=== PATIENT | female | born 1925 | race Caucasian/White ===

== ENCOUNTER 2016-07-19 17:26 | Emergency (ER) | payer OTHER ==
[~2016-07-19] VITALS: Ht 152.4 cm; Wt 72.1 kg
[2016-07-19] MEDS ORDERED: TOPROL XL25 M1 PO (18:13)
[2016-07-19] MEDS ORDERED: AMITRIPTYLINE H25 M2 (18:15)
--- NOTE | 2016-07-19 19:03 | ED EYE COMPLAINT ---
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 DENIES PAIN/HEADACHES. MANUAL BP 166/102 Triage Nurses Notes Reviewed? yes Onset: Gradual Duration: day(s): (3) Timing: recent history Injury Environment: home Severity: moderate No Modifying Factors: none Left Eye Associated Symptoms: blurred vision, decreased vision Right Eye Associated Symptoms: decreased vision HPI: 89 year old female who presents with a 3 day history of gradual vision loss to her right eye in the left upper quadrant. Today she noticed on/off blurry vision in her whole left eye. No pain or headache. No dizziness or difficulty with speech or swallowing. History of prior bilateral cataract repair 7 years ago in [place]. Denies any trauma to the eye. No history of similar symptoms in the past before. Past History Travel History Traveled to [place] past 21 day No Medical History Any Pertinent Medical History? 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 No Review of Systems Review of Systems Constitutional: Denies: chills, fever. Eyes: Reports: blurred vision, decreased acuity, vision change. Denies: foreign body sensation, pain, photophobia, contact lenses, glasses. Ear: Reports: no symptoms. Nose: Reports: no symptoms. Mouth: Reports: no symptoms. Throat: Reports: no symptoms. Respiratory: Denies: short of breath. Cardiovascular: Denies: chest pain, palpitations. GI: Reports: no symptoms. Genitourinary: Reports: no symptoms. Musculoskeletal: Reports: no symptoms. Skin: Reports: no symptoms. Neurological/Psychological: Denies: ataxia, confusion, headache. Hematologic/Endocrine: Denies: bruising, bleeding. Immunologic/Allergic: Reports: no symptoms. All Other Systems: Reviewed and Negative Physical Exam General Appearance: well developed/nourished, mild distress General Inspection: normal inspection Eyelid: normal inspection, everted for exam Conjunctiva/Sclera: normal inspection Cornea: normal inspection EOM: intact Pupil: normal accommodation, PERRL Anterior Chamber: normal inspection General Inspection: normal inspection Eyelid: normal inspection, everted for exam Cornea: normal inspection EOM: intact Pupil: normal accommodation, PERRL Anterior Chamber: normal inspection Physical Exam Head: atraumatic Nose: normal inspection Mouth/Throat: normal mouth inspection Neck: normal inspection, supple Cardiovascular/Respiratory: normal breath sounds, regular rate/rhythm Neurologic/Psych: awake, alert, oriented x 3, normal mood/affect Skin: intact, normal color, warm/dry Progress Differential Diagnosis: detached retina, retinal art./v. occlusion Plan of Care: Orders Procedure Date/time Status COMPREHENSIVE METABOLIC PANEL 07/19 1821 Complete Laboratory Tests 07/19/16 1800: Anion Gap 10, Estimated GFR > 60, BUN/Creatinine Ratio 12.5, Glucose 114 H, Calcium 9.5, Total Bilirubin 0.9, AST 34, ALT 36, Alkaline Phosphatase 88, Total Protein 7.4, Albumin 4.1, Globulin 3.3, Albumin/Globulin Ratio 1.2 incomplete visualization of retina of both eyes. no discernable defect 8:51 PM OPTHO PAGED ACUITY LESS THAN 20/20O BILATERALLY D/W DR LEIGH - WILL SEE IN THE OFFICE AT 9 AM TOMORROW. FEELS SHE DOES NOT REQUIRE IMMEIDATE EVALUATION OR TRANSFER TO [place] AT THIS TIME. (HARRIET BRYANT,GENNY) Diagnostic Imaging: Viewed by Me: CT Scan. Discussed w/RAD: CT Scan. Radiology Impression: PATIENT: LISA HARTMAN PRESENT AGE: 89 PATIENT ACCOUNT NO: [id number] : [birth year] LOCATION: [facility] ORDERING PHYSICIAN: GENNY LARIOS MD SERVICE DATE: 07/19/16 EXAM TYPE: CAT - CT HEAD ANGIOGRAM EXAMINATION: CT HEAD ANGIOGRAM CLINICAL INFORMATION: Left upper quadrant vision loss right eye. COMPARISON: No relevant prior imaging is available. TECHNIQUE: Eligibility And Occupancy Interviewer images were obtained. A CT angiogram of the head was performed in the arterial phase after the intravenous administration of 95 mL Optiray 350. Pre and delayed postcontrast images of the head were also obtained. MIP reconstructions were generated in multiple orientations at the acquisition workstation. Multiple three-dimensional surface rendered images and maximum intensity projection images were generated on a dedicated 3-D lab workstation. Total exam dose-length product 1713.68 mGy-cm FINDINGS: Head: There is no acute intracranial hemorrhage or abnormal extra-axial collection. Postcontrast images reveal no abnormal mass or enhancement. There is no intracranial mass effect or midline shift. Lateral and third ventricles are proportionate to the subarachnoid spaces. No hydrocephalus. Scattered foci of hypoattenuation are visualized within the perivenular white matter that most likely represent a chronic manifestation of small vessel ischemia. Gage-white matter differentiation is otherwise preserved and there is no evidence of acute territorial infarct. The calvarium and skull base are intact. Mastoid air cells and middle ear cavities are well aerated. Visualized paranasal sinuses are well- aerated. CT angiogram head: There is a differential density of contrast filling the anterior and posterior circulation suggesting a delay within the posterior circulation. This relationship is best illustrated on axial image 73 of 258 series 3. The visualized distal cervical internal carotid arteries are patent. The petrous, cavernous, and supraclinoid segments of internal carotid arteries are patent. The intradural vertebral artery segments and basilar artery are patent. Anterior, middle, and posterior cerebral artery complexes are unremarkable with no evidence of high-grade stenosis or proximal large vessel occlusion. IMPRESSION: There is a differential density of contrast opacifying the anterior and posterior circulation suggesting a delay of filling within the vertebrobasilar system. These findings raise the question of a more proximal high-grade stenosis that is not included within the [id number] of this examination for instance within the proximal vertebral arteries or subclavian arteries. Otherwise the CT angiogram of the head is unremarkable with no evidence of high-grade stenosis or proximal large vessel occlusion within the intracranial vessels. There is no worrisome mass or enhancement. No evidence of acute territorial infarct or hemorrhage. DICTATED BY: PREMA PERALTA MD DATE /TIME DICTATED:07/19/161954 AUTOMOTIVE PAINT TECHNICIAN:ARJUN DATE/TIME TRANSCRIBED: 07/19/161954 CONFIDENTIAL, DO NOT COPY WITHOUT APPROPRIATE AUTHORIZATION. < Electronically signed in Other Vendor System> SIGNED BY: PREMA PERALTA MD 07/19/162009 Departure Departure Time of Disposition: 2036 Disposition: HOME OR SELF CARE Condition: Stable Clinical Impression Primary Impression: Vision disturbance Referrals: OZIEL BRYANT,JOYCE (PCP/Family) LU BRYANT,JESSENIA Bunn Additional Instructions: See Dr. Leigh in the office tomorrow between 8 and 8:30 am Departure Forms: Customer Survey General Discharge Information
--- NOTE | 2016-07-19 20:10 | CT SCAN REPORT ---
EXAMINATION: CT HEAD ANGIOGRAM CLINICAL INFORMATION: Left upper quadrant vision loss right eye. COMPARISON: No relevant prior imaging is available. TECHNIQUE: Flattening Press Operator images were obtained. A CT angiogram of the head was performed in the arterial phase after the intravenous administration of 95 mL Optiray 350. Pre and delayed postcontrast images of the head were also obtained. MIP reconstructions were generated in multiple orientations at the acquisition workstation. Multiple three-dimensional surface rendered images and maximum intensity projection images were generated on a dedicated 3-D lab workstation. Total exam dose-length product 1713.68 mGy-cm FINDINGS: Head: There is no acute intracranial hemorrhage or abnormal extra-axial collection. Postcontrast images reveal no abnormal mass or enhancement. There is no intracranial mass effect or midline shift. Lateral and third ventricles are proportionate to the subarachnoid spaces. No hydrocephalus. Scattered foci of hypoattenuation are visualized within the perivenular white matter that most likely represent a chronic manifestation of small vessel ischemia. Gage-white matter differentiation is otherwise preserved and there is no evidence of acute territorial infarct. The calvarium and skull base are intact. Mastoid air cells and middle ear cavities are well aerated. Visualized paranasal sinuses are well-aerated. CT angiogram head: There is a differential density of contrast filling the anterior and posterior circulation suggesting a delay within the posterior circulation. This relationship is best illustrated on axial image 73 of 258 series 3. The visualized distal cervical internal carotid arteries are patent. The petrous, cavernous, and supraclinoid segments of internal carotid arteries are patent. The intradural vertebral artery segments and basilar artery are patent. Anterior, middle, and posterior cerebral artery complexes are unremarkable with no evidence of high-grade stenosis or proximal large vessel occlusion. IMPRESSION: There is a differential density of contrast opacifying the anterior and posterior circulation suggesting a delay of filling within the vertebrobasilar system. These findings raise the question of a more proximal high-grade stenosis that is not included within the [id number] of this examination for instance within the proximal vertebral arteries or subclavian arteries. Otherwise the CT angiogram of the head is unremarkable with no evidence of high-grade stenosis or proximal large vessel occlusion within the intracranial vessels. There is no worrisome mass or enhancement. No evidence of acute territorial infarct or hemorrhage.
[2016-07-19 21:25] VITALS: BP 169/93
== END 2016-07-19 21:26 ==
LOC: ERH 17:26
DX: H53.9 Unspecified visual disturbance (principal)

== ENCOUNTER 2016-11-01 19:39 | Emergency (ER) | payer OTHER ==
[~2016-11-01] VITALS: Ht 152.4 cm; Wt 70.3 kg
[~2016-11-01 19:39] MED LIST: AMITRIPTYLINE H25 M2; TOPROL XL25 M1 PO
--- NOTE | 2016-11-01 19:59 | ED GENERAL ADULT ---
History of Present Illness General Chief Complaint: General Adult Stated Complaint: BILATERAL ANKLE SWELLING Source: patient Exam Limitations: no limitations Vital Signs & Intake/Output Vital Signs & Intake/Output Vital Signs Date Time Temp Pulse Resp B/P B/P Pulse O2 O2 Flow FiO2 Mean Ox Delivery Rate 11/01 2208 97.2 53 18 158/80 97 Room Air 11/01 2038 54 16 148/70 96 Room Air 11/01 2000 97.8 58 20 179/80 95 Room Air ED Intake and Output 11/02 0000 11/01 1200 Intake Total Output Total Balance Patient 155 lb Weight Weight Estimated Measurement Method . (ANITA HARDING DO) Allergies Coded Allergies: aspirin (Severe, syncope 11/01/16) Reconcile Medications Atorvastatin Calcium 40 MG TABLET 1 TAB PO DAILY CHOLESTEROL (Reported) Furosemide (Lasix) 20 MG TABLET 1 TAB PO DAILY PRN DEPENDENT EDEMA Metoprolol Succ XL (Toprol XL) 25 MG TAB 1 TAB PO DAILY HTN (Reported) Potassium Chloride 10 MEQ TABLET.ER 1 TAB PO DAILY AVOID HYPOKALEMIA Triage Nurses Notes Reviewed? yes Onset: Abrupt Duration: day(s): Timing: recent history HPI: 11/01/16 8:42 pm 89-year-old female presents to the emergency department for bilateral lower extremity swelling. According to the patient she says she's had intermittent swelling in the past. Now over the past several days she's developed swelling to both feet. She denies calf pain. She denies chest pain. She denies shortness of breath. She denies fever or any other complaints other than swelling to both feet. She has no pain to the feet. Past History Travel History Traveled to [place] past 21 day No Medical History Any Pertinent Medical History? 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 No Review of Systems Review of Systems Constitutional: Denies: fever. EENTM: Reports: no symptoms. Respiratory: Reports: no symptoms. Cardiovascular: Reports: see HPI. GI: Denies: abdominal pain. Genitourinary: Reports: no symptoms. Musculoskeletal: Reports: no symptoms. Skin: Reports: no symptoms. Neurological/Psychological: Reports: no symptoms. Hematologic/Endocrine: Reports: no symptoms. Immunologic/Allergic: Reports: no symptoms. Physical Exam Physical Exam General Appearance: well developed/nourished, alert, awake, anxious, mild distress Head: atraumatic, normal appearance Eyes: Bilateral: normal appearance, PERRL, EOMI. Ears, Nose, Throat: normal pharynx, normal ENT inspection Neck: normal inspection, supple Respiratory: normal breath sounds, chest non-tender, no respiratory distress Cardiovascular: regular rate/rhythm Peripheral Pulses: 4+ radial (R), 4+ radial (L) Gastrointestinal: soft, non-tender Rectal: heme negative stool Back: normal inspection Extremities: normal inspection, pedal edema, swelling Neurologic/Psych: no motor/sensory deficits, awake, alert, oriented x 3 Skin: intact, normal color, warm/dry Core Measures ACS in differential dx? No CVA/TIA Diagnosis: No Severe Sepsis Present: No Septic Shock Present: No Progress Differential Diagnoses I considered the following diagnoses in my evaluation of the patient: [DVT, CHF, dependent edema, renal failure] Plan of Care: Orders Procedure Date/time Status TROPONIN LEVEL 11/01 2048 Complete D-DIMER 11/01 2048 Complete COMPREHENSIVE METABOLIC PANEL 11/01 2048 Complete CBC WITHOUT DIFFERENTIAL 11/01 2048 Complete EKG 11/01 2048 Active Laboratory Tests 11/01/162102: Anion Gap 8, Estimated GFR > 60, BUN/Creatinine Ratio 11.3, Glucose 93, Calcium 8.9, Total Bilirubin 1.0, AST 23, ALT 25, Alkaline Phosphatase 62, Troponin I < 0.01, Total Protein 6.3, Albumin 3.7, Globulin 2.6, Albumin/Globulin Ratio 1.4, D-Dimer High Sensitivty 493 H, CBC w Diff NO MAN DIFF REQ, RBC 4.40, MCV 92.6, MCH 30.6, RDW 15.4 H, MPV 9.5, Gran % 62.7, Lymphocytes % 25.3, Monocytes % 10.9 H, Eosinophils % 0.8, Basophils % 0.3, Absolute Granulocytes 4.6, Absolute Lymphocytes 1.8, Absolute Monocytes 0.8 H, Absolute Eosinophils 0.1, Absolute Basophils 0, PUBS MCHC 33.0 We will send labs and obtain EKG. (ANITA HARDING DO) Initial ED EKG: sinus bradycardia, first-degree AV block. Departure Departure Disposition: STILL A PATIENT Condition: Stable Clinical Impression Primary Impression: Dependent edema Referrals: JOYCE LUDWIG MD (PCP/Family) Departure Forms: Customer Survey General Discharge Information Prescriptions: Current Visit Scripts Furosemide (Lasix) 1 TAB PO DAILY PRN DEPENDENT EDEMA #10 TAB Potassium Chloride 1 TAB PO DAILY #10 TAB Comments 11/01/16 10:53 PM The patient's labs are unremarkable. EKG shows nonspecific changes mild bradycardia. She is on metoprolol. Her d-dimer was minimally elevated, age adjusted. She was empirically treated with Lovenox. Rectal was guaiac negative. She will return tomorrow for Lower extremity ultrasound will start her on Lasix and given her KCl. Critical Care Note Critical Care Note Critical Care Time: non-applicable
[2016-11-01] MEDS ORDERED: ATORVASTATIN CA40 M1 PO (20:03)
[2016-11-01 21:20] LABS: ABSOLUTE BASOPHIL COUNT 0 /CUMM (0.0-0.2); ABSOLUTE EOSINOPHIL COUNT 0.1 /CUMM (0.0-0.7); ABSOLUTE GRANULOCYTE CT 4.6 /CUMM (1.4-6.5); ABSOLUTE LYMPH COUNT 1.8 /CUMM (1.2-3.4); ABSOLUTE MONOCYTE COUNT 0.8 /CUMM (0.10-0.60); BASOPHIL % 0.3 % (0.0-2.0); EOSINOPHIL % 0.8 % (0-5); GRANULOCYTE % 62.7 % (42.2-75.2); HEMATOCRIT 40.8 % (37-47); MEAN CORPUSCULAR HGB 30.6 PG (27.0-31.0); MEAN CORPUSCULAR VOLUME 92.6 FL (81.0-99.0); MEAN PLATELET VOLUME 9.5 FL (7.4-10.4); PLATELET COUNT 142 /CUMM (130-400); RBC DISTRIBUTION WIDTH 15.4 % (11.5-14.5); WHITE BLOOD CELL COUNT 7.3 /CUMM (4.8-10.8)
[2016-11-01 22:09] VITALS: BP 158/80
[2016-11-01] MEDS ORDERED: LASIX20 M1 PO (22:51)
[2016-11-01] MEDS ORDERED: KCL 10 MEQ20 MEQ/102 PO (22:51)
[2016-11-01] MEDS ORDERED: POTASSIUM CHLO10 ME4 PO (22:57)
== END 2016-11-01 23:06 ==
LOC: ERH 19:39
PROVIDERS: Emergency Medicine
DX: R60.9 Edema, unspecified (principal)
CPT/HCPCS: 93005; 93010; 96372; J1650